=== PATIENT | female | born 1960 | race Two or more races ===

== ENCOUNTER 2016-09-07 21:47 | Emergency (ER) | payer MEDICAID ==
[~2016-09-07] VITALS: Ht 162.6 cm; Wt 77.1 kg
[~2016-09-07 21:47] MED LIST: ASPIR 8181 MG ORAL; IBUPROFEN200 MG ORAL; LEVOTHYROXINE25 MCG ORAL; METFORMIN HCL500 M1 ORAL
[2016-09-07] MEDS ORDERED: IBUPROFEN600 MG ORAL (22:05)
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
[2016-09-07 22:41] VITALS: BP 153/83
--- NOTE | 2016-09-12 11:45 | Diagnostic Imaging Report ---
Indication: Pain Comparison: None Findings: Left rib series performed. There is no fracture identified. No pneumothorax identified. The left lung is essentially clear. Impression: Negative left rib series
== END 2016-09-07 22:45 ==
LOC: EMR 22:09
DX: Z02.89 Encounter for other administrative examinations (principal); S20.212A Contusion of left front wall of thorax, initial encounter; E11.9 Type 2 diabetes mellitus without complications; Y04.8XXA Assault by other bodily force, initial encounter; Y92.9 Unspecified place or not applicable; Y99.8 Other external cause status
CPT/HCPCS: 99283

== ENCOUNTER 2017-08-04 15:02 | Emergency (ER) | payer MEDICAID ==
[~2017-08-04] VITALS: Ht 160 cm; Wt 72.6 kg
[~2017-08-04 15:02] MED LIST changes: +IBUPROFEN600 MG ORAL
--- NOTE | 2017-08-04 15:25 | Emergency Room Report ---
History of Present Illness General Chief Complaint: General Complaint Source: Patient Present Illness HPI 57 y/o female c/o nose bleed x 2 x this morning. States bleeding lasted for less than 15 min and resolved with direct pressure. Patient states she contacted 911 and EMS arrive stating her BP was in 170s which was causing her nose bleeds. Patient denies hx of HTN and takes no medications. Denies any trauma or cocaine use. States bleeding was induced after blowing nose and comes from right nostril and bleeds going anteriorly. Denies any fatigue, anemia, illicit drug use, hx of established HTN, DM, foreign body, headache, n/v, photophobia, neck pain, weakness, CP, SOB, or easy bruising. Allergies: Coded Allergies: No Known Allergies (Unverified , 09/09/14) Patient History Limited by: language barrier Past Medical History: see triage record Past Surgical History: none Pertinent Family History: none Last Menstrual Period: 2 years ago Reviewed Nursing Documentation: PMH: Agreed, PSxH: Agreed Nursing Documentation-PMH Past Medical History: No History, Except For Hx Hypertension: Yes Hx Diabetes: Yes Review of Systems All Other Systems: negative except mentioned in HPI Physical Exam Vital Signs Date Time Temp Pulse Resp B/P (MAP) Pulse Ox O2 Delivery O2 Flow Rate FiO2 08/04/17 15:04 97.9 80 18 145/75 97 Room Air Sp02 EP Interpretation: reviewed, normal General Appearance: no apparent distress, alert, GCS 15, non-toxic Head: normocephalic, atraumatic Eyes: bilateral eye normal inspection, bilateral eye PERRL ENT: hearing grossly normal, normal pharynx, no angioedema, normal voice, other - right anterior turbinate lateral wall with ulceration with blood crusting. No active bleeding. No signs of trauma or FB. Neck: full range of motion, supple/symm/no masses Respiratory: chest non-tender, lungs clear, normal breath sounds, speaking full sentences Cardiovascular #1: regular rate, rhythm, no edema Musculoskeletal: back normal, gait/station normal, normal range of motion Neurologic: alert, oriented x3, responsive, motor strength/tone normal, sensory intact, speech normal Psychiatric: judgement/insight normal, memory normal, mood/affect normal, no suicidal/homicidal ideation Skin: normal color, no rash, warm/dry, well hydrated, other - no bruises or echymosis Procedures Additional Procedure Procedure Narrative Applied silver nitrate stick to right turbinate at site of bleeding. Patient tolerated procedure without complications. Medical Decision Making PA Attestation Dr. Dykes my supervising physician with whom patient management has been discussed with. Diagnostic Impression: Primary Impression: Anterior epistaxis ER Course Pt. presents to the ED c/o nose bleeds Ddx considered but are not limited to posterior epistaxis, anterior epistaxis, cocaine use, foreign body, trauma, anemia Vital signs: are WNL, pt. is afebrile H&PE are most consistent with anterior epistaxis ORDERS: none required at this time, the diagnosis is clinical ED INTERVENTIONS: Silver nitrate applied to non-bleeding wound.. DISCHARGE: At this time pt. is stable for d/c to home. Will provide printed patient care instructions, and any necessary prescriptions. Care plan and follow up instructions have been discussed with the patient prior to discharge. Last Vital Signs Date Time Temp Pulse Resp B/P (MAP) Pulse Ox O2 Delivery O2 Flow Rate FiO2 08/04/17 15:04 97.9 80 18 145/75 97 Room Air Disposition: HOME, SELF-CARE Condition: Stable Patient Instructions: Nosebleed Additional Instructions: Educated patient that most nosebleeds stop on their own. Advised patient that when they have a nose bleed in the future to 1. Blow their nose. This might increase the bleeding for a moment, but that's OK. 2. Sit or stand while bending forward a little at the waist. DO NOT lie down or tilt your head back. 3. Pinch the soft area towards the bottom of your nose, below the bone. DO NOT content development manager the bridge of your nose between your eyes. That will not work. DO NOT press on just 1 side, even if the bleeding is only on 1 side. 4. Squeeze your nose shut for at least 15 minutes. (In children, squeeze for only 5 minutes.) Use a clock to time yourself. Do not release the pressure before the time is up to check if the bleeding has stopped. If you keep checking, you will ruin your chances of getting the bleeding to stop. Advised patient to go to the urgent care or ER if they follow these steps, and their nose keeps bleeding after repeating all the steps once more and if bleeding lasts for a total of at least 30 minutes (or 10 minutes for children). Advised patient to avoid breathing dry air all the time, using cold or allergy nasal sprays too much, or snorting drugs into their nose, such as cocaine. Patient to follow up with PCP if symptoms persist but is able to manage bleeding with direct pressure. SERA BOUCHER Aug 04, 2017 15:25
[2017-08-04] MEDS ORDERED: Silver Nitrate Stick TOPIC ONE (15:30)
[2017-08-04 15:32] VITALS: BP 149/79
== END 2017-08-04 15:36 | disposition home or self-care (01) ==
LOC: EMR 15:19
DX: R04.0 Epistaxis (principal); E11.9 Type 2 diabetes mellitus without complications; I10 Essential (primary) hypertension
CPT/HCPCS: 99283; Z7502